=== PATIENT | female | born 1995 | race Two or more races ===

== ENCOUNTER 2019-01-23 20:31 | Emergency (ER) | payer MEDICAID, OTHER ==
[~2019-01-23] VITALS: Ht 157.5 cm; Wt 59.0 kg
--- NOTE | 2019-01-23 20:35 | NUR ---
ED Nurse Note: Spoke with Holly Hines from [facility]. Notifyed about patient.
[2019-01-23 20:40] VITALS: BP 131/85
--- NOTE | 2019-01-23 20:40 | NUR ---
ED Nurse Note: Patient was BIBA 26 c/o n/v after ingesting 12 pills of alleve and 14 pills of nyquil liquid gels at 1500 at [employer] (where she works) . Per EMS, pt has hx of anxiety and difficulty at home. AAO x4, skin is dry warm to touch, VSS at this time.
--- NOTE | 2019-01-23 21:15 | NUR ---
ED Nurse Note: Recieved pt from another area in ED, report given by YoliRN, pt in bed resting quietly, awake and alert, pt is here for ingesstion of pills in OD attempt and suicidal attempt, pt has hx of SI and and attempts made before, pt immediately gowned, placed on suicidal precautions and sitter ordered, pt is calm and cooperative, iv line placed and pt placed on cardiac monitoring, pt denies pain and c/o nausea, will medicate as ordered and closely monitor on suicidal precautions. pt is placed next to nurse for constant visualization.
--- NOTE | 2019-01-23 21:23 | NUR ---
Nursing supervisor harvesting advised of a need for a sitter-none available at this time.
--- NOTE | 2019-01-23 21:28 | Emergency Room Report ---
History of Present Illness General Chief Complaint: Substance Abuse Source: Patient Present Illness HPI Is a 23-year-old female with no past medical history. She does have psychiatric history with depression. She presents with overdose. Onset was around 5 hours prior to arrival. She says she took a handful of NyQuil and 14 Aleve. She states he did this because she "does not want to be here anymore." Denies any other drug use. Not dizzy and nauseous. No fever chills. No homicidal thought. No hallucination or delusion. Denies any other drug use. Allergies: Coded Allergies: No Known Allergies (Unverified , 01/23/19) Patient History Past Medical History: see triage record, old chart reviewed Past Surgical History: none Family History: none Social History: other Last Menstrual Period: 01/2019 Now: No Immunizations: other Reviewed Nursing Documentation: PMH: Agreed; PSxH: Agreed Review of Systems ENT: Denies: sore throat Cardiovascular: Denies: chest pain, palpitations Gastrointestinal/Abdominal: Reports: nausea, vomiting; Denies: diarrhea Musculoskeletal: Denies: back problems Skin: Denies: rash Neurological: Denies: VALENCIA, seizures All Other Systems: negative except mentioned in HPI Physical Exam Vital Signs Date Time Temp Pulse Resp B/P (MAP) Pulse Ox O2 Delivery O2 Flow Rate FiO2 01/23/19 20:23 98.2 75 16 131/85 (100) 100 Room Air Vitals normal Sp02 EP Interpretation: reviewed, normal General Appearance: alert/responsive, no apparent distress, non-toxic Head: normocephalic, atraumatic Eyes: PERRL, EOMI ENT: oropharynx normal Neck: supple/symm/no masses Respiratory: effort normal, no rhonchi, no wheezing Cardiovascular: no murmur, gallop, rub Gastrointestinal: non-tender, no mass, non-distended, no rebound/guarding, normal bowel sounds Musculoskeletal: gait & station normal Neurologic: oriented x3, sensory intact, motor strength/tone normal Psychiatric: other - depressed affect Skin: no rash, normal palpation Medical Decision Making Diagnostic Impression: Primary Impression: Polysubstance overdose Qualified Codes: T50.902A - Poisoning by unspecified drugs, medicaments and biological substances, intentional self-harm, initial encounter Additional Impression: Suicidal overdose Qualified Codes: T50.902A - Poisoning by unspecified drugs, medicaments and biological substances, intentional self-harm, initial encounter ER Course Patient presents with overdose on Aleve and NyQuil. Aspirin level is slightly elevated. We will repeat to make sure is normal range. Patient did this in a suicide attempt. She says she felt better now. She is willing to go voluntarily to a psychiatric hospital. She is medically cleared. Lab Results Impression Unremarkable except for slightly elevated aspirin level. Rhythm Strip Diag. Results EP Interpretation: yes Rate: 71 Rhythm: NSR, no PVC's, no ectopy Last Vital Signs Date Time Temp Pulse Resp B/P (MAP) Pulse Ox O2 Delivery O2 Flow Rate FiO2 01/23/19 20:40 75 16 Room Air 01/23/19 20:40 98.2 131/85 100 Status: improved Disposition: XFER TO PSYCH HOSP/UNIT Condition: Stable Arun Malhotra MD Jan 23, 2019 21:28
[2019-01-23 21:43] LABS: APPEARANCE,URINE CLEAR; BILIRUBIN, URINE NEGATIVE (NEGATIVE); COLOR,URINE PALE YELLOW; GLUCOSE, URINE (UA) NEGATIVE (NEGATIVE); KETONES,URINE NEGATIVE (NEGATIVE); LEUKOCYTE ESTERASE ,URINE NEGATIVE (NEGATIVE); NITRITE,URINE NEGATIVE (NEGATIVE); PH,URINE 8 (4.5-8.0); PROTEIN,URINE NEGATIVE (NEGATIVE); UROBILINOGEN,URINE NORMAL MG/DL (0.0-1.0)
[2019-01-23 21:49] LABS: BASOPHILS % (AUTO) 0.8 % (0.0-2.0); EOSINOPHILS % (AUTO) 0.1 % (0.0-3.0); HEMATOCRIT 36.5 % (37.0-47.0); HEMOGLOBIN 11.5 G/DL (12.0-16.0); LYMPHOCYTES % (AUTO) 19.5 % (20.0-45.0); MEAN CORPUSCULAR VOLUME 74 FL (80-99); MONOCYTES % (AUTO) 6.7 % (1.0-10.0); NEUTROPHILS % (AUTO) 72.8 % (45.0-75.0); PLATELET COUNT 175 K/UL (150-450); RED BLOOD COUNT 4.96 M/UL (4.20-5.40); RED CELL DISTRIBUTION WIDTH 12.8 % (11.6-14.8); WHITE BLOOD COUNT 6.8 K/UL (4.8-10.8)
[2019-01-23 22:00] VITALS: BP 123/73
[2019-01-23 22:01] LABS: ANION GAP 8 mmol/L (5-15); BLOOD UREA NITROGEN 11 mg/dL (7-18); CALCIUM 9.2 MG/DL (8.5-10.1); CARBON DIOXIDE 25 MMOL/L (21-32); CHLORIDE 107 MMOL/L (98-107); CREATININE 0.7 MG/DL (0.55-1.30); POTASSIUM 4.3 MMOL/L (3.5-5.1); SODIUM 140 MMOL/L (136-145)
[2019-01-23 22:05] LABS: ALANINE AMINOTRANSFERASE 16 U/L (12-78); ALBUMIN 4.1 G/DL (3.4-5.0); ALBUMIN/GLOBULIN RATIO 1.1 (1.0-2.7); ALKALINE PHOSPHATASE 35 U/L (46-116); ASPARTATE AMINO TRANSFERASE 15 U/L (15-37); BILIRUBIN,TOTAL 0.2 MG/DL (0.2-1.0)
[2019-01-24] VITALS (7 sets, daily range): BP systolic 105–122; BP diastolic 59–77
--- NOTE | 2019-01-24 00:19 | NUR ---
ER Nurse Note: Deepali from [facility] control called for update on pt. Pt information provided. Deepali suggested a repeat CMP, acetaminophen, and liver enzyme redraw and call back if there is any changes in pt. Addendum: 01/24/19 at 0021 by [email or web address] BRAXTON made aware; Dr. Malhotra denied request. Will let primary nurse know.
--- NOTE | 2019-01-24 02:15 | NUR ---
ED Nurse Note: pt sleeping, in bed w/ eyes closed, on cardiac monitoring, v/s stable, no sob or labored breathing, pt remains on suicidal precautions with continuous observation, no attempts or changes made, wiaiting for psych placement, will continue to closely monitor.
--- NOTE | 2019-01-24 04:30 | NUR ---
ED Nurse Note: Pt sleeping, no distress noted, no sob or albored breathing, v/s stable, will continue to closely montior, pt remains on suicidal precautions.
--- NOTE | 2019-01-24 07:15 | NUR ---
ED Nurse Note:
--- NOTE | 2019-01-24 07:15 | NUR ---
Marguerite dougherty in [facility] - 01/24/19 at 0721 by LUDA ED Note:
--- NOTE | 2019-01-24 07:15 | NUR ---
ED Nurse Note: Received report from Emilee RODGERS, pt is resting on her bed with no distress. Breakfast consumed 80%. Waiting for psych evaluation. Will continue to assess.
--- NOTE | 2019-01-24 08:29 | NUR ---
ED Nurse Note: Pt is talking to her mom on the phone.
--- NOTE | 2019-01-24 08:35 | NUR ---
ED Nurse Note: Belongings placed on psych locker #2. primary RN as sitter.
--- NOTE | 2019-01-24 09:48 | NUR ---
ED Nurse Note: Pt is calm and singing. Primary RN as sitter.
--- NOTE | 2019-01-24 13:45 | NUR ---
ED Nurse Note: Carlos horton Followed up lunch order with osiel.
--- NOTE | 2019-01-24 13:58 | NUR ---
ED Nurse Note: Lunch provided to the patient. Primary RN as sitter.
--- NOTE | 2019-01-24 14:11 | NUR ---
ED Nurse Note: Raymond Hinton at the bed side. Pt still eating her lunch. No acute distress.
--- NOTE | 2019-01-24 14:40 | NUR ---
ED Nurse Note: Primary RN assisted Dr Dunham for pt assessment. Pt is AAO x4 and still denies SI. Dr Dunham ordered to discharge patient and Dr Chiu aware.
--- NOTE | 2019-01-24 15:20 | NUR ---
ER DISCHARGE NOTE: Patient is cleared to be discharged per ERMD, pt is aox4, on room air, with stable vital signs. pt was given dc instructions, pt was able to verbalize understanding, pt id band and iv site removed without complications. pt is able to ambulate with steady gait. pt took all belongings and left with her family member.
--- NOTE | 2019-01-25 03:00 | Consultation ---
DATE OF CONSULTATION: 01/24/2019 HISTORY OF PRESENT ILLNESS: The patient is a 23-year-old female by anxiety disorder and depression, who has been admitted to the hospital after she allegedly overdosed on and some Advil. 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 The patient stated that she has financial issues and has relationship issues with her family. The patient stated that she was having thoughts of hurting herself. She was sent home because she was drowsy. The patient started having panic attack and called 911 as she changed her mind and she did not want to . The patient was brought in to the emergency room at [facility]. The patient is not on a hold. The patient denied any suicidal or homicidal ideation. Denies any depressive symptoms. However, she has anxiety. I explained to her that she most probably has a panic attack like symptoms. Therefore, she should be on medication. She is reluctant to be on any psychotropic medication and wants to be discharged. She stated that she has a therapist that she will talk to therapy. I explained to her at this point she needs medication. She was reluctant to take any medication. She does not have any psychotic or manic symptoms. PAST PSYCHIATRY HISTORY: The patient denies any suicide attempts. No psychiatric hospitalization. PAST MEDICAL HISTORY: Nonsignificant. ALLERGIES: No known drug allergies. SUBSTANCE ABUSE HISTORY: The patient is smoking weed. Denies any illicit drug use or alcohol. MENTAL STATUS EXAMINATION: The patient is alert and oriented x4. Calm and cooperative. Mood is dysphoric. Affect is full range. Thought process, linear and goal oriented. Thought content, no suicidal or homicidal ideation. No psychotic symptoms. Insight and judgment is fair. ASSESSMENT: Eustis I Panic disorder. Eustis II Deferred. Eustis III Status post overdose. Eustis IV Low. Eustis V 50. PLAN: 1. We will discontinue the patient. 2. The patient is not an imminent danger to self or others. 3. The patient is reluctant to take psychotropic medication. 4. Provide the patient with reality orientation and supportive therapy. Pantea Farhadi, M.D. DR: CARLOS JOB#: [id number] CC:
== END 2019-01-24 15:20 | disposition home or self-care (01) ==
LOC: EDBD 20:31 → EMR 20:58
DX: T39.312A Poisoning by propionic acid derivatives, intentional self-harm, initial encounter (principal); F32.9 Major depressive disorder, single episode, unspecified; T50.992A Poisoning by other drugs, medicaments and biological substances, intentional self-harm, initial encounter; Y92.9 Unspecified place or not applicable
CPT/HCPCS: 36415; 80053; 80196; 80307; 80329; 81003; 81025; 85025; 96374; J2405; Z7502; 99284